=== PATIENT | male | born 2000 | race Caucasian/White ===

== ENCOUNTER 2025-04-13 06:27 | Emergency (ER) | payer OTHER ==
[~2025-04-13] VITALS: Ht 170.2 cm; Wt 52.6 kg
[2025-04-13 06:36] VITALS: TEMP 97.4
[2025-04-13 07:02] LABS: LEUKOCYTE ESTERASE ,URINE NEGATIVE (Neg); NITRITES, URINE NEGATIVE (Neg); OCCULT BLOOD,URINE NEGATIVE (Neg)
[2025-04-13 07:02] LABS: MEAN PLATELET VOLUME 7.8 FL (7.4-10.4); RED CELL DISTRIBUTION WIDTH 13.8 % (11.5-14.5)
[2025-04-13 07:04] LABS: UA COLLECTION TYPE CLN CATCH MIDSTREAM
[2025-04-13] MEDS: ondansetron/PF 4mg/2ml inj IV ONE (07:07)
[2025-04-13 07:22] LABS: CREATININE 0.98 MG/DL (0.60-1.10); TOTAL CARBON DIOXIDE 22.5 MMOL/L (24-32); eCRCL 85 ML/MIN; eGFR > 90 ML/MIN
[2025-04-13] MEDS: normal saline 1000ML IV soln IVB ONE (09:07)
[2025-04-13 10:30] VITALS: BP 120/77; PULSE 99; RESP 18; O2SAT 98
== END 2025-04-13 11:49 | disposition left against medical advice (07) ==
LOC: ER 06:31
DX: R11.10 Vomiting, unspecified (principal); Z53.21 Procedure and treatment not carried out due to patient leaving prior to being seen by health care provider
CPT/HCPCS: 36415; 80053; 81003; 82948; 83690; 85025; 99281; J2405; J7030; 96361; 96374; 99283